=== PATIENT | male | born 1975 | race Caucasian/White ===

== ENCOUNTER 2017-07-21 04:22 | Inpatient (IN) | payer BC ==
[2017-07-21 05:09] LABS: Urine Appearance Clear; Urine Blood Negative (Negative); Urine Color Straw; Urine Ketones Negative (Negative); Urine Protein Negative (Negative); Urine Specific Gravity 1.002 (1.010-1.030); Urine Urobilinogen Negative (Negative)
[2017-07-21 05:11] LABS: ABS Basophils 0 10^3/ul (0-0.2); ABS Eosinophils 0.1 10^3/ul (0-0.6); ABS Lymphocytes 1.7 10^3/ul (1.0-4.8); ABS Monocytes 1.3 10^3/ul (0-0.8); ABS Nucleated RBC 0 10^3/ul; Eosinophil % 0.7 % (0-6); Hematocrit 47 % (42-52); Hemoglobin 16.7 g/dl (14.0-18.0); Lymphocyte % 21.4 % (25-47); Mean Corpuscular HGB Conc 35 g/dl (31-36); Mean Corpuscular Hemoglobin 36 pg (27-31); Mean Corpuscular Volume 102 fL (80-94); Mean Platelet Volume 6.9 um3 (7.4-10.4); Nucleated Red Blood Cells % 0.1; Platelet Count 172 10^3/ul (150-450); Red Blood Count 4.65 10^6/ul (4.00-5.40); Red Cell Distribution Width 13 % (10.5-15); White Blood Count 8.1 10^3/ul (3.5-10.8)
[2017-07-21 05:21] LABS: EGFR Non-African American 137.1 (>60)
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
[2017-07-21] MEDS ORDERED: Al Hydrox/Mg Hydrox/Simet LIQ* 30 ML UDC PO PRN (13:18)
[2017-07-21] MEDS ORDERED: Acetaminophen TAB* 325 MG PO PRN (13:18)
[2017-07-21] MEDS ORDERED: LORazepam TAB(*) 1 MG PO PRN (13:19)
[2017-07-21] MEDS ORDERED: Haloperidol TAB* 2 MG PO PRN (13:19)
[2017-07-21] MEDS ORDERED: Haloperidol TAB* 5 MG PO PRN (13:36)
--- NOTE | 2017-07-22 11:29 | PN ---
[facility]: Group Therapy Note - Service Type Service Type: 20345 Group Psychotherapy - Cognitive Behavioral Group Therapy ( CBT):Patient attended CBT programming this morning and presented with flat affect that did not vary with discussion. Although responsive to direct prompts to respond to questions, patient did not engage in spontaneous conversation.
[2017-07-22] MEDS: Venlafaxine EXT RELEASE CAP* 75 MG PO SCH (14:51)
[2017-07-22] MEDS ORDERED: Naltrexone INJ 380 MG IM ONE (15:04)
[2017-07-22] MEDS ORDERED: LORazepam TAB(*) 0.5 MG PO PRN (15:56)
[2017-07-22] MEDS ORDERED: LORazepam TAB(*) 1 MG PO PRN (15:58)
[2017-07-22] MEDS: Thiamine TAB* 100 MG TAB PO SCH (17:20)
[2017-07-22] MEDS: Folic Acid TAB* 1 MG PO SCH (17:20)
[2017-07-22] MEDS: Multivitamins/Minerals TAB PO SCH (17:20)
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
[2017-07-22] MEDS: hydrOXYzine HCL TAB* 50 MG PO PRN ×2 (21:16→22:29)
[2017-07-23] MEDS: Folic Acid TAB* 1 MG PO SCH (08:25)
[2017-07-23] MEDS: Thiamine TAB* 100 MG TAB PO SCH (08:25)
[2017-07-23] MEDS: Multivitamins/Minerals TAB PO SCH (08:25)
[2017-07-23] MEDS: Venlafaxine EXT RELEASE CAP* 75 MG PO SCH (08:25)
[2017-07-23] MEDS ORDERED: Mouth Piece, Nicotine* 1 EACH CARTRIDGE INH SCH (20:19)
[2017-07-23] MEDS: Nicotine Inhaler* 10 MG AMP INH PRN (20:26)
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
[2017-07-23] MEDS: LORazepam TAB(*) 1 MG PO PRN ×2 (20:58→21:45)
[2017-07-24] MEDS: hydrOXYzine HCL TAB* 50 MG PO PRN (01:00)
[2017-07-24] MEDS: Folic Acid TAB* 1 MG PO SCH (10:03)
[2017-07-24] MEDS: Venlafaxine EXT RELEASE CAP* 75 MG PO SCH (10:03)
[2017-07-24] MEDS: Thiamine TAB* 100 MG TAB PO SCH (10:03)
[2017-07-24] MEDS: Multivitamins/Minerals TAB PO SCH (10:03)
[2017-07-24] MEDS: Nicotine Inhaler* 10 MG AMP INH PRN ×5 (10:26→21:09)
[2017-07-25] MEDS: Nicotine GUM* 2 MG PO PRN ×6 (07:45→21:09)
[2017-07-25] MEDS: Nicotine Inhaler* 10 MG AMP INH PRN ×6 (07:46→21:09)
[2017-07-25] MEDS: Thiamine TAB* 100 MG TAB PO SCH (08:55)
[2017-07-25] MEDS: Folic Acid TAB* 1 MG PO SCH (08:55)
[2017-07-25] MEDS: Multivitamins/Minerals TAB PO SCH (08:55)
[2017-07-25] MEDS: Venlafaxine EXT RELEASE CAP* 75 MG PO SCH (08:55)
--- NOTE | 2017-07-25 11:57 | PN ---
Subjective - Subjective Date of Service: 07/25/17 Service Type: 62086 Hosp care 15 min low complexity Subjective: Gabriel remains the same with regards to his thinking and denying the facts leading upto his legal problems prior to his admission on [facility]. He can't see his faults at all and continues to justify his action and no action that day. Good thing is he acknowledges his anxiety is probably related to drinking and wants to work on it. Very eager to go back to work. Denies any mood, thoughts or perceptual disturbances. Also denies SI or HI. Objective - Appearance Appearance: Healthy Appearing Dysmorphic Features: No Hygiene: Normal Grooming: Fairly Well Kept - Behavior Psychomotor Activities: Normal Exhibits Abnormal Movement: No - Attitude and Relatedness Attitude and Relatedness: Appropriate Eye Contact: Good - Speech Quality: Unpressured Latencies: Normal Quantity: Appropriate - Mood Patient's Decription of Mood: "Okay" - Affect Observed Affect: Depressed Affect Consistent with: Dysphoria - Thought Process Patient's Thought Process: Coherent, Goal Directed Thought Content: No Passive Wish, No Suicidal Planning, No Homicidal Ideation, No Paranoid Ideation - Sensorium Experiencing Hallucinations: No, Sensorium is Clear Type of Hallucinations: Visual: No, Auditory: No, Command: No - Level of Consciousness Level of Consciousness: Alert Orientation: Yes Intact, Yes Orientated to Time, Yes Orientated to Place, Yes Orientated to Person - Impulse Control Impulse Control: Intact - Insight and Judgement Insight and Judgement: Poor - Group Participation Particating in Group Activities: Yes - Medication Management Medication Management Adherence: Yes Assessment - Assessment Merits Inpatient Hospitalization: Consolidate Improvements, Pending Safe DC Plan Inpatient DSM-V Dx: F41.9 Clinical Impression: Psychiatrically stable enough to be discharged with a safe plane coordinated with local Law enforcements. Safe act report prior to discharge. Plan - Plan Treatment Plan: Name: GABRIEL HOUSER Birthdate: 1975 [id number] Continued Medication Management: Continue Outpt Medication Medications: Current Medications Acetaminophen (Tylenol Tab*) 650 mg PO Q4H PRN PRN Reason: for pain; or Temp >101 F Al Hydrox/Mg Hydrox/Simethicone (Maalox Plus*) 30 ml PO Q4H PRN PRN Reason: INDIGESTION Device (Nicotine Mouth Piece*) 1 each INH [facility] Last Admin: 07/23/17 20:25 Dose: 1 each Folic Acid (Folvite Tab*) 1 mg PO DAILY [facility] Last Admin: 07/25/17 08:55 Dose: 1 mg Haloperidol (Haldol Tab*) 5 mg PO Q6H PRN PRN Reason: AGITATION Hydroxyzine HCl (Atarax Tab*) 50 mg PO BEDTIME PRN PRN Reason: INSOMNIA Last Admin: 07/24/17 01:00 Dose: 50 mg Lorazepam (Ativan Tab(*)) 2 mg PO Q6H PRN PRN Reason: AGITATION Last Admin: 07/24/17 21:08 Dose: 2 mg Lorazepam (Ativan Tab(*)) 1 mg PO BEDTIME PRN PRN Reason: INSOMNIA Last Admin: 07/23/17 21:45 Dose: 1 mg Multivitamins/Minerals (Theragran/Minerals Tab*) 1 tab PO DAILY [facility] Last Admin: 07/25/17 08:55 Dose: 1 tab Nicotine (Nicotine Inhaler*) 10 mg INH Q2H PRN PRN Reason: CRAVING Last Admin: 07/25/17 10:33 Dose: 10 mg Nicotine Polacrilex (Nicotine Gum*) 2 mg PO Q2H PRN PRN Reason: CRAVING Last Admin: 07/25/17 10:33 Dose: 2 mg Thiamine HCl (Vitamin B-1 Tab*) 100 mg PO DAILY [facility] Last Admin: 07/25/17 08:55 Dose: 100 mg Venlafaxine HCl (Effexor Xr Cap*) 75 mg PO DAILY [facility] Last Admin: 07/25/17 08:55 Dose: 75 mg - Discharge Plan Discharge Plan: Outpatient Follow Up Outpatient Program: [facility].
[2017-07-25] MEDS: LORazepam TAB(*) 1 MG PO PRN ×2 (21:06→21:41)
[2017-07-26] MEDS: Nicotine GUM* 2 MG PO PRN ×3 (06:03→10:45)
[2017-07-26] MEDS: Nicotine Inhaler* 10 MG AMP INH PRN ×3 (06:03→10:45)
[2017-07-26] MEDS: Thiamine TAB* 100 MG TAB PO SCH (08:37)
[2017-07-26] MEDS: Folic Acid TAB* 1 MG PO SCH (08:37)
[2017-07-26] MEDS: Venlafaxine EXT RELEASE CAP* 75 MG PO SCH (08:37)
[2017-07-26] MEDS: Multivitamins/Minerals TAB PO SCH (08:38)
[2017-07-26 10:32] VITALS: BP 120/76
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
--- NOTE | 2017-07-28 01:59 | DS ---
DISCHARGE SUMMARY: DATE OF ADMISSION: 07/21/17 DATE OF DISCHARGE: 07/26/17 PROVIDER: Nicolasa Connolly NP in Psychiatry. SUPERVISING PHYSICIAN: Cesar Moulton MD. DIAGNOSES: Angier I: Alcohol induced mood disorder, anxiety disorder, not otherwise specified. Angier II : Cluster B traits. CONDITION AT THE TIME OF DISCHARGE: Improved, psychiatrically cleared, stable. He participated in [employer] and was moderately social with peers. His family is agreeable to discharge. He has struggled here but has done well psychiatrically. He did tolerate Vivitrol, which was a new medication. He tiffanie l attend [facility]. MENTAL STATUS EXAM: At the time of discharge, the patient is calm, cooperative, he makes good eye co ntact. Alert and oriented x3. His grooming is good, his speech pace is normal. His thought process es are logical. He is not psychotic, not delusional. Denies AH, VH, SI and HI. Insight is fair. J udgment is good. He is willing to follow up. DISCHARGE INSTRUCTIONS TO PATIENT: A. Medications: DICTATION ENDS ABRUPTLY HERE... NICOLASA CONNOLLY NP [id number]/CPS #: [id number]
== END 2017-07-26 12:15 | disposition home or self-care (01) | DRG 756 ==
LOC: ED 04:22 → BSU 17:19
PROVIDERS: ADMIT Psychiatry & Neurology Psychiatry; ATTEND Psychiatry & Neurology Psychiatry
DX: F41.9 Anxiety disorder, unspecified (principal); F10.14 Alcohol abuse with alcohol-induced mood disorder; F10.129 Alcohol abuse with intoxication, unspecified; Y90.6 Blood alcohol level of 120-199 mg/100 ml; F17.210 Nicotine dependence, cigarettes, uncomplicated
CPT/HCPCS: 36415; 80053; 80307; 80320; 80329; 81003; 81015; 84443; 85025; 87086; 90853; 99222; 99231; 99232; 99284; A9270-GY; G0480